=== PATIENT | female | born 1980 | race Caucasian/White ===

== ENCOUNTER 2019-04-14 05:47 | Emergency (ER) | payer MEDICAID, OTHER ==
[~2019-04-14] VITALS: Ht 165.1 cm; Wt 94.6 kg
--- NOTE | 2019-04-14 06:07 | NUR ---
FIRST CONTACT WITH PT. PT C/O N/V/D x 3 days. + abdominal cramping. described diarrhea as watery. PT'S AOX4. RESPS EVEN AND UNLABORED. BP/SPO2 MONITORS IN PLACE. CALL LIGHT WITHIN REACH. EDMD AT BEDSIDE TO ASSESS
--- NOTE | 2019-04-14 06:22 | NUR ---
iv fluid infusing now. pt tolerated well.
--- NOTE | 2019-04-14 06:27 | NUR ---
Candy acevedo in ED - 04/14/19 at 0638 by DURAN pt is not able to provide urine sample at this time.
--- NOTE | 2019-04-14 06:27 | NUR ---
pt is not able to provide urine sample at this time. urine cup at bedside.
[2019-04-14] MEDS ORDERED: SODIUM CHLORIDE FLUSH 10ML SYR IVF ONE (06:30)
[2019-04-14] MEDS ORDERED: SODIUM CHLORIDE 0.9% 1,000ML IVBOLUS ONE (06:30)
--- NOTE | 2019-04-14 06:46 | NUR ---
report given to carmen tavarez.
--- NOTE | 2019-04-14 06:50 | NUR ---
REPORT RECIEVED FROM TITI. PT REQUEST FOR MEDICATION FOR NAUSEA.
[2019-04-14 06:54] LABS: BASOPHILS # (AUTO) 0.02 x10^3/uL (0-0.1); BASOPHILS % (AUTO) 0 % (0-1); EOSINOPHILS # (AUTO) 0.17 x10^3/uL (0-0.4); EOSINOPHILS % (AUTO) 3 % (1-7); LYMPHOCYTES # (AUTO) 2.63 x10^3/uL (1-3.4); LYMPHOCYTES % (AUTO) 42 % (22-44); MD NO; MEAN CORPUSCULAR HEMOGLOBIN 29.9 pg (27.0-34.8); MEAN CORPUSCULAR HGB CONC 32.6 g/dL (32.4-35.8); MEAN CORPUSCULAR VOLUME 91.7 fL (80-100); MEAN PLATELET VOLUME 8.6 fL (7.4-10.4); MONOCYTES # (AUTO) 0.37 x10^3/uL (0.2-0.8); MONOCYTES % (AUTO) 6 % (2-9); NEUTROPHILS # (AUTO) 3.11 x10^3/uL (1.8-6.8); NEUTROPHILS % (AUTO) 49 % (42-75); PLATELET COUNT 259 x10^3/uL (130-400); RED BLOOD COUNT 4.34 x10^6/uL (3.82-5.3); RED CELL DISTRIBUTION WIDTH 14.3 % (9.6-15.2)
[2019-04-14] MEDS ORDERED: ONDANSETRON 2MG/ML, 2ML ONE (06:54)
[2019-04-14] MEDS ORDERED: ONDANSETRON 2MG/ML, 2ML IVPush ONE (07:00)
--- NOTE | 2019-04-14 07:04 | NUR ---
pt ambulated to bathroom with steady gait.
[2019-04-14 07:05] LABS: ALANINE AMINOTRANSFERASE 26 U/L (12-78); ALBUMIN 3.2 g/dL (3.4-5.0); ANION GAP 7 mmol/L (5-15); CHLORIDE 113 mmol/L (98-107); CREATININE 0.68 mg/dL (0.55-1.02)
[2019-04-14 07:07] LABS: ALKALINE PHOSPHATASE 72 U/L (45-117); BILIRUBIN,TOTAL 0.5 mg/dL (0.2-1.0); TOTAL PROTEIN 6.9 g/dL (6.4-8.2)
[2019-04-14 07:10] VITALS: BP 127/78
[2019-04-14 07:18] LABS: MICROSCOPIC NOT IND
[2019-04-14 07:26] LABS: CULTURE INDICATED? NO
--- NOTE | 2019-04-14 07:28 | NUR ---
Pt provided iced water for po challenge. Will recheck pt to assess ability to maintain po fluids.
== END 2019-04-14 08:06 | disposition home or self-care (01) ==
LOC: ED 07:55
DX: K52.9 Noninfective gastroenteritis and colitis, unspecified (principal); Z90.710 Acquired absence of both cervix and uterus; Z90.89 Acquired absence of other organs
CPT/HCPCS: 36415; 80053; 81003; 83690; 85025; 96361; 96374; 99283; J2405; J7030

== ENCOUNTER 2019-04-17 16:29 | Emergency (ER) | payer MEDICAID ==
[~2019-04-17] VITALS: Ht 165.1 cm; Wt 95.2 kg
--- NOTE | 2019-04-17 16:40 | NUR ---
Pt ambulates to room from triage with steady gait and balance. NADN. No obvious defecits observed.
[2019-04-17] MEDS ORDERED: MORPHINE SULFATE 4 MG/ML, 1ML ONE ×2 (16:55→18:51)
[2019-04-17] MEDS ORDERED: ONDANSETRON 2MG/ML, 2ML ONE (16:55)
[2019-04-17] MEDS ORDERED: ONDANSETRON 2MG/ML, 2ML IVPush ONE (17:00)
[2019-04-17] MEDS ORDERED: SODIUM CHLORIDE FLUSH 10ML SYR IVF ONE (17:00)
--- NOTE | 2019-04-17 17:02 | NUR ---
First contact with pt. Pt resting on gurney. NADN. Pt connected to NIBP and continous pulse ox. Pt c/o n/v/d for one week with worsening of pain. Pt states, "I was here Tuesday for the same thing. The diarrhea has gotten better and I havn't had it for a day. I havn't vomitted since yesterday. I have more pain today though. The pain is a 6 in my lower stomach, it comes and goes, it gets better, now it is constant, the last couple of hours, and it's aching." Pt denies cp, sob, trauma, syncope, blood in urine, blood in vomit, or blood in stool.
[2019-04-17 17:11] LABS: ALBUMIN 3.6 g/dL (3.4-5.0); ANION GAP 7 mmol/L (5-15); CALCIUM 8.8 mg/dL (8.5-10.1); CHLORIDE 111 mmol/L (98-107)
[2019-04-17] MEDS: MORPHINE SULFATE 4 MG/ML, 1ML IVPush PRN ×2 (17:14→18:56)
[2019-04-17 17:15] LABS: ALANINE AMINOTRANSFERASE 27 U/L (12-78); ALKALINE PHOSPHATASE 82 U/L (45-117); BILIRUBIN,TOTAL 0.2 mg/dL (0.2-1.0); CREATININE 0.79 mg/dL (0.55-1.02); TOTAL PROTEIN 7.9 g/dL (6.4-8.2)
[2019-04-17 17:27] LABS: BASOPHILS # (AUTO) 0.03 x10^3/uL (0-0.1); BASOPHILS % (AUTO) 0 % (0-1); EOSINOPHILS # (AUTO) 0.18 x10^3/uL (0-0.4); EOSINOPHILS % (AUTO) 2 % (1-7); LYMPHOCYTES # (AUTO) 2.91 x10^3/uL (1-3.4); LYMPHOCYTES % (AUTO) 33 % (22-44); MD SCAN; MEAN CORPUSCULAR HEMOGLOBIN 29.5 pg (27.0-34.8); MEAN CORPUSCULAR HGB CONC 32.5 g/dL (32.4-35.8); MEAN CORPUSCULAR VOLUME 90.9 fL (80-100); MONOCYTES # (AUTO) 0.51 x10^3/uL (0.2-0.8); MONOCYTES % (AUTO) 6 % (2-9); NEUTROPHILS # (AUTO) 5.26 x10^3/uL (1.8-6.8); NEUTROPHILS % (AUTO) 59 % (42-75); PLATELET COUNT 284 x10^3/uL (130-400); RED BLOOD COUNT 4.39 x10^6/uL (3.82-5.3); RED CELL DISTRIBUTION WIDTH 13.9 % (9.6-15.2)
[2019-04-17] MEDS ORDERED: OMNIPAQUE 350 MG/ML, 100ML BOTTLE ONE (18:39)
--- NOTE | 2019-04-17 19:04 | NUR ---
Provided bedside report to NADEGE Barreto. All questions answered. NADEGE Barreto to assume care of pt. Provided pt pain medication per EMAR per request for 6/10 lower abdominal pain and cramping. Pt appreciative.
--- NOTE | 2019-04-17 19:09 | NUR ---
report from Jordana tavarez. Pt resting with no needs at this time. call light in reach
[2019-04-17 19:13] LABS: MICROSCOPIC AUTO
[2019-04-17 19:23] LABS: CULTURE INDICATED? YES
[2019-04-17] MEDS ORDERED: CEFTRIAXONE PMX 1GM/50ML 50 ML IV ONE (20:30)
[2019-04-17] MEDS ORDERED: MAALOX/HYOSCYAMINE/LIDOCAINE 45 ML BTL PO ONE (20:30)
[2019-04-17] MEDS ORDERED: CEFTRIAXONE PMX 1GM/50ML 50 ML ONE (20:46)
[2019-04-17] MEDS ORDERED: MAALOX/HYOSCYAMINE/LIDOCAINE 45 ML BTL ONE (20:47)
[2019-04-17 20:54] VITALS: BP 135/89
--- NOTE | 2019-04-17 20:56 | NUR ---
PT GIVEN GI COCKTAIL. ABX RUNNING. VSS. PT TO BE DISCHARGED AFTER ABX. CALL LIGHT IN REACH
--- NOTE | 2019-04-17 21:34 | NUR ---
Patient given discharge instructions and they have confirmed that they understand the instructions. Patient ambulatory with steady gait.
== END 2019-04-17 21:35 | disposition home or self-care (01) ==
LOC: ED 20:03
DX: N39.0 Urinary tract infection, site not specified (principal); R10.33 Periumbilical pain; R19.7 Diarrhea, unspecified; Z90.89 Acquired absence of other organs; Z90.710 Acquired absence of both cervix and uterus; Z90.49 Acquired absence of other specified parts of digestive tract
CPT/HCPCS: 36415; 74177; 80053; 81001; 83690; 85025; 87086; 96365; 96375; 96376; 99284; J0696; J2270; J2405; Q9967